=== PATIENT | male | born 1985 | race African-American/Black ===

== ENCOUNTER → 2020-10-09 | Outpatient (CLI) | payer OTHER ==
--- NOTE | ~2020-10-09 | SLEEP ---
[address] [address] SLEEP STUDY REPORT Name: TIMI TIPTON Room: [facility]#: [id number] Admission: 10/09/20 Attend Phys: Silas Graves MD Discharge: Date of : 87 Report #: [id number] THIS REPORT FOR: //name// cc: JANAE Young family physician/PCP JANAE - Hannah family physician/PCP ~ CC: Silas Graves [facility] physician/PCP This study has been reviewed in its entirety by a board certified sleep specialist DATE OF SERVICE: 10/09/2020 SLEEP STUDY INDICATION FOR SLEEP STUDY: Daytime sleepiness. INTERPRETATION: Total duration of the study is 448 minutes out of which he was asleep for 384 minutes with an overall sleep efficiency of 85%. Sleep onset occurred about 8 minutes after lying down in bed. REM onset was 109 minutes after sleep onset. N1 sleep duration 11%, N2 duration is 62%, N3 duration is 16%, and REM duration was 11%. We did record multiple sleep related respiratory events. These included 2 obstructive apneas in addition to 26 hypopneas and 21 respiratory effort related arousals. The patient's overall apnea-hypopnea index was 4.4 with respiratory disturbance index of 7.7. Events did appear to be more common in REM sleep. REM apnea-hypopnea index was 15.9. Body position data indicates the patient was observed asleep in the supine position for 295 minutes. The rest of the time, the patient was on the left side. There is no significant positional variation. Mean heart rate was 61. The patient's EKG did appear to be abnormal and was frequently irregular. Limb movement index is normal at 7.8. Arousal index is mildly elevated to 17.2. We did record occasional desaturations as well. The patient's O2 saturation, however, was mostly maintained at or above 90%, falling below 88% for only 0.1 minutes during the sleep study. IMPRESSION: 1. Increased upper airway resistance syndrome with an apnea-hypopnea index of 4.4 and a respiratory disturbance index of 7.7. These values are just below criteria for a diagnosis of obstructive sleep apnea. 2. There is no significant positional variation and O2 saturation is adequately maintained during the sleep study. 3. There are abnormalities on the patient's EKG noted, which [place] [address] SLEEP STUDY REPORT Name: TIMI TIPTON Room: [facility]#: [id number] Admission: 10/09/20 Attend Phys: Silas Graves MD Discharge: Date of : 87 Report #: [id number] RECOMMENDATIONS: 1. The patient's apnea-hypopnea index is 4.4, which is just below criteria for most insurance companies to approve CPAP. If clinically appropriate, I suggest considering weight loss. This will likely lead to an improvement in the patient's increased upper airway resistance syndrome. While likely not covered by his insurance, the patient may still benefit from a CPAP, if he does use it and therefore, if the patient is willing to pay out of pocket for a CPAP, such therapy could still be considered. 2. The patient's EKG is abnormal. I would recommend further evaluation unless this has already known, recommend obtaining a 12-lead EKG and if this is unremarkable, then recommend considering a Holter monitor. 3. I recommend avoiding driving or other activities requiring vigilance if drowsy. This entire sleep study was reviewed by board certified sleep physician. By: [id number] Sam MD /david
== END ==
LOC: M.SLEEPLAB 20:00
PROVIDERS: ATTEND Orthopaedic Surgery
DX: G47.33 Obstructive sleep apnea (adult) (pediatric) (principal)